=== PATIENT | male | born 1960 | race Caucasian/White ===

== ENCOUNTER → 2021-11-21 09:01 | Outpatient (CLI) | payer OTHER, SELFPAY ==
[2021-11-21 19:46] LABS: Hemoglobin A1C% w Est Avg Glu 6.4 % (4.0-6.0)
[2021-11-21 19:47] LABS: Alanine Aminotransferase 21 IU/L (<50); Albumin 4.2 g/dL (3.5-5.0); Albumin Globulin Ratio 1.6 (1.0-2.8); Alkaline Phosphatase 55 U/L (38-126); Aspartate Aminotransferase 21 IU/L (17-59); BUN Creatinine Ratio 18.3 (6-22); Bilirubin Total 0.5 mg/dL (0.2-1.3); Blood Urea Nitrogen 15 mg/dL (9-20); Calcium 9.3 mg/dL (8.4-10.2); Carbon Dioxide 28 mmol/L (22-32); Chloride 105 mmol/L (98-107); Cholesterol 165 mg/dL (140-199); Estimated Glomerular Filt Rate > 60 mL/min (>60); Globulin 2.7 g/dL (1.7-4.1); Glucose 138 mg/dL (80-110); HDL Cholesterol 61 mg/dL (40-60); HEMOLYSIS < 15 (0-50); LDL Cholesterol Calculated 78 mg/dL (<100); Potassium 3.8 mmol/L (3.4-5.1); Sodium 139 mmol/L (137-145); Total Protein 6.9 g/dL (6.3-8.2); Triglycerides 132 mg/dL (35-150)
[2021-11-21 20:00] LABS: Basophils Absolute Auto 100 /uL (0-100); Basophils Percent Auto 0.9 % (0-2); Eosinophils Absolute Auto 200 /uL (0-450); Eosinophils Percent Auto 2.1 % (2-4); Hematocrit 40.6 % (41-53); Hemoglobin 13.9 g/dL (13.5-17.5); Lymphocytes Absolute Auto 2100 /uL (1100-4500); Lymphocytes Percent Auto 19.2 % (25-40); Mean Corpuscular HGB Conc 34.3 % (30-36); Mean Corpuscular Hemoglobin 30.1 PG (26-34); Mean Corpuscular Volume 87.7 fL (80-100); Monocytes Absolute Auto 700 /uL (0-900); Neutrophils Absolute Auto 7900 /uL (1500-7000); Neutrophils Percent Auto 71.8 % (50-75); Platelet Count 312 X10^3/uL (150-400); Red Blood Cell Count 4.63 X10^6/uL (4.5-5.9); Red Cell Distribution Width 15.2 % (11.6-14.8)
[2021-11-21 21:16] LABS: Add Manual Diff / Slide Review SLIDE REVIEW; RBC Morphology Normal Morphology
== END ==
PROVIDERS: Family Provider Family Medicine; PCP Physician Assistant Medical; Visit Provider Physician Assistant Medical
DX: D84.9 Immunodeficiency, unspecified (principal); E11.618 Type 2 diabetes mellitus with other diabetic arthropathy; E78.5 Hyperlipidemia, unspecified; F33.9 Major depressive disorder, recurrent, unspecified; I10 Essential (primary) hypertension; M13.0 Polyarthritis, unspecified; M35.3 Polymyalgia rheumatica
CPT/HCPCS: 80053; 80061; 83036; 84443; 85025

== ENCOUNTER → 2022-04-29 10:02 | Outpatient (CLI) | payer OTHER, SELFPAY ==
--- NOTE | 2022-04-29 | DI.NM.S_ITS ---
PROCEDURE: ID BONE 3 PHASE RADIOPHARMACEUTICAL: 22 mCi Tc-99m MDP IV. INDICATIONS: FAILURE OF RIGHT KNEE TOTAL ARTHROPLASTY TECHNIQUE: Multiple bone scintigrams were obtained after intravenous injection of Tc-99m MDP, including flow, blood pool, and delayed images centered to the region of interest. COMPARISON: [place], [place], BONE SCAN WHOLE BODY, 11/25/2015, 14:25. FINDINGS: There is asymmetric mildly increased flow and blood pool around the right knee. Delayed images show increased uptake of the right knee compared to the left. There is also increased delayed uptake around the left patella, of questionable significance as this is stable and not the site of clinical concern. IMPRESSION: Increased flow, blood pool, and delayed uptake around the right knee prosthesis can be seen with infection or loosening. Correlate clinically and with radiography as needed. Dictated by: Pranav Sanders M.D. on 04/29/2022 at 14:57 Approved by: Pranav Sanders M.D. on 04/29/2022 at 14:59
== END ==
PROVIDERS: Family Provider Family Medicine; PCP Physician Assistant Medical; Referring Provider Orthopaedic Surgery; Visit Provider Orthopaedic Surgery
DX: M25.561 Pain in right knee (principal); T84.84XD Pain due to internal orthopedic prosthetic devices, implants and grafts, subsequent encounter
CPT/HCPCS: 78315; A9503

== ENCOUNTER → 2022-05-28 09:34 | Outpatient (CLI) | payer OTHER, SELFPAY ==
--- NOTE | 2022-05-28 09:36 | DI.CT.S_ITS ---
PROCEDURE: CT LE RT WO CON INDICATIONS: Broken internal joint prosthesis, other site. Right knee pain TECHNIQUE: Noncontrast 1-1.5 mm axial sections acquired from the mid-patella to the proximal tibia, with coronal and sagittal reformats. COMPARISON: [place], [place], [place] BONE 3 PHASE, 04/29/2022, 10:14. FINDINGS: Image quality: Diagnostic. Significant beam hardening artifacts are noted from knee prosthesis. Bones: Patient is status post right total knee arthroplasty. Right knee alignment is anatomic. The prosthesis are grossly intact without obvious hardware fracture. No significant increase radiolucencies surrounding hardware is seen to suggest loosening . Heterogeneously sclerotic area within mid to distal femoral shaft medullary space is seen measures up to 2 x 3 x 11.8 cm in size . No adjacent cortical erosion or destruction is seen. No periosteal reaction. Soft tissues: There is moderate amount of joint effusion. No intra-articular loose bodies. No abnormal soft tissue calcifications. Distal quadriceps tendon and patellar tendon are grossly intact. IMPRESSION: 1. Prior right total knee arthroplasty. No evidence of hardware failure. No definite CT evidence of hardware loosening. 2. No periprosthetic fracture. Heterogeneously sclerotic area within mid to distal femoral shaft medullary space likely represent benign enchondroma. No suspicious bony lesion. 3. Moderate joint effusion, no intra-articular loose bodies. No abnormal soft tissue calcifications. Dictated by: Arvind Fournier M.D. on 05/28/2022 at 10:14 Approved by: Arvind Fournier M.D. on 05/28/2022 at 10:40
== END ==
PROVIDERS: Family Provider Family Medicine; PCP Physician Assistant Medical; Referring Provider Orthopaedic Surgery; Visit Provider Orthopaedic Surgery
DX: T84.018A Broken internal joint prosthesis, other site, initial encounter (principal); M25.561 Pain in right knee; M25.461 Effusion, right knee; Z96.651 Presence of right artificial knee joint
CPT/HCPCS: 73700

== ENCOUNTER → 2022-08-06 10:47 | Outpatient (CLI) | payer OTHER, SELFPAY ==
[2022-08-06 20:05] LABS: Add Manual Diff / Slide Review NO; Basophils Absolute Auto 100 /uL (0-100); Basophils Percent Auto 1.1 % (0-2); Eosinophils Absolute Auto 300 /uL (0-450); Eosinophils Percent Auto 3.3 % (2-4); Hematocrit 41.1 % (41-53); Hemoglobin 13.8 g/dL (13.5-17.5); Lymphocytes Absolute Auto 1400 /uL (1100-4500); Lymphocytes Percent Auto 15.4 % (25-40); Mean Corpuscular HGB Conc 33.6 % (30-36); Mean Corpuscular Hemoglobin 30.2 PG (26-34); Mean Corpuscular Volume 89.8 fL (80-100); Monocytes Absolute Auto 700 /uL (0-900); Monocytes Percent Auto 7.8 % (3-14); Neutrophils Absolute Auto 6600 /uL (1500-7000); Neutrophils Percent Auto 72.4 % (50-75); Platelet Count 296 X10^3/uL (150-400); Red Blood Cell Count 4.58 X10^6/uL (4.5-5.9); Red Cell Distribution Width 14.3 % (11.6-14.8); White Blood Cell Count 9.2 X10^3/uL (4.5-11.0)
[2022-08-06 20:16] LABS: Hemoglobin A1C% w Est Avg Glu 5.6 % (4.0-6.0)
[2022-08-06 20:20] LABS: Alanine Aminotransferase 17 IU/L (<50); Albumin 4.2 g/dL (3.5-5.0); Albumin Globulin Ratio 1.6 (1.0-2.8); Alkaline Phosphatase 59 U/L (38-126); Aspartate Aminotransferase 17 IU/L (17-59); BUN Creatinine Ratio 20.5 (6-22); Bilirubin Total 0.8 mg/dL (0.2-1.3); Blood Urea Nitrogen 17 mg/dL (9-20); Calcium 9.1 mg/dL (8.4-10.2); Carbon Dioxide 28 mmol/L (22-32); Chloride 105 mmol/L (98-107); Estimated Glomerular Filt Rate > 60 mL/min (>60); Globulin 2.7 g/dL (1.7-4.1); Glucose 102 mg/dL (80-110); HEMOLYSIS < 15 (0-50); Potassium 3.9 mmol/L (3.4-5.1); Sodium 139 mmol/L (137-145); Total Protein 6.9 g/dL (6.3-8.2)
[2022-08-06 20:27] LABS: C-Reactive Protein Quant < 0.5 mg/dL (<1.0); Creatine Kinase 55 U/L (55-170)
[2022-08-06 20:31] LABS: Erythrocyte Sedimentation Rate 6 MM/HR (0-15)
[2022-08-06 20:46] LABS: Appearance Urine UA CLEAR; Bilirubin Urine UA NEGATIVE (NEGATIVE); Color Urine UA YELLOW; Glucose Urine UA NEGATIVE (Negative); Ketones Urine UA NEGATIVE (NEGATIVE); Leukocyte Esterase Urine UA NEGATIVE (NEGATIVE); Nitrite Urine UA NEGATIVE (Negative); Occult Blood Urine UA 1+ (Negative); Protein Urine UA NEGATIVE (Negative); Urobilinogen Urine UA 0.2 E.U./dL (0.2)
[2022-08-06 20:56] LABS: TSH w/ Reflex to FT4 4.04 uIU/mL (0.47-4.68)
[2022-08-06 21:21] LABS: Bacteria Urine None Seen; Culture Indicated Urine Cult Not Indicated; RBC Urine None Seen (0-5/HPF); WBC Urine None Seen (0-5/HPF)
== END ==
PROVIDERS: Family Provider Family Medicine; PCP Family Medicine; Visit Provider Family Medicine
DX: Z01.818 Encounter for other preprocedural examination (principal); E11.42 Type 2 diabetes mellitus with diabetic polyneuropathy; I10 Essential (primary) hypertension; M35.3 Polymyalgia rheumatica; Z79.52 Long term (current) use of systemic steroids; Z96.651 Presence of right artificial knee joint; M13.0 Polyarthritis, unspecified; D84.9 Immunodeficiency, unspecified; E78.5 Hyperlipidemia, unspecified
CPT/HCPCS: 80053; 81001; 82550; 83036; 84443; 85025; 85651; 86140

== ENCOUNTER → 2022-08-19 06:53 | Outpatient (CLI) | payer OTHER, SELFPAY ==
[2022-08-19 22:01] LABS: COVID19 - ORCAS (NP or Nasal) Negative (Negative)
== END ==
PROVIDERS: Physician Assistant; Family Provider Family Medicine; PCP Family Medicine; Visit Provider Orthopaedic Surgery
DX: Z20.822 Contact with and (suspected) exposure to COVID-19 (principal); Z01.812 Encounter for preprocedural laboratory examination
CPT/HCPCS: U0003

== ENCOUNTER 2022-08-21 11:47 | Inpatient (IN) | payer OTHER, SELFPAY ==
[2022-08-18 08:42] VITALS: BMI 33.5
[2022-08-21] VITALS (11 sets, daily range): BP systolic 139–160; BP diastolic 70–90; PULSE 56–78; RESP 12–169; TEMP 36.3–36.7; O2SAT 95–100; BMI 33.5
--- NOTE | 2022-08-21 | PATH_ITS ---
[facility] Accession Number: [id number] No. of containers..01 Tissue . 01 Material submitted: . knee - RIGHT KNEE SYNOVIUM . 01 Clinical history: . HX OF ENCHONDROMA . 01 Diagnosis: Right Knee Synovium, Excision: Reactive synovial tissue with cystic degenerative changes, histiocytic inflammation, hemosiderin deposition, and reactive angiogenesis; see note. . Note: The findings are not entirely specific; however, they mostly appear reactive in nature. The examined sections are negative for malignancy. [facility] 08/27/2022 0939 Local . 01 Comment: This case has been reviewed by Dr. Doris Negron who agrees with the above diagnosis. . 01 Electronically signed: . Keshav Cuevas MD, Dermatopathologist NPI- [id number] . 01 Gross description: . The specimen is received in formalin labeled with the patient's name, , and right knee synovium, and consists of a ragged, irregular, swan to brown soft tissue fragment measuring 6.8 x 5.9 x 1.3 cm. One surface is inked blue, and sectioning reveals an orange to swan, heterogenous cut surface. Technical Data Analyst sections are submitted in cassettes A1-A3. ([id number]) /FRR 08/22/2022 1620 Local . 01 Pathologist provided ICD-10: T84.018A . 01 CPT . 890508 Specimen Comment: A courtesy copy of this report has been sent to [phone] Performed at: 01 [facility] [address] [place] [address] Suite [facility], [place], [place] [id number] MD Jarett Tapia MD Phone: [phone]
--- NOTE | 2022-08-21 06:00 | DI.RAD.S_ITS ---
PROCEDURE: XR KNEE RT 1TO2V INDICATIONS: TKA TECHNIQUE: 2 view(s) of the knee acquired. COMPARISON: [facility] [place], [place], XR KNEE 4+ VIEWS RIGHT, 04/02/2022, 13:28. FINDINGS: Bones: Patient is status post knee joint arthroplasty. Hardware components are in expected positions. Visualized bony structures are intact. Soft tissues: Overlying postoperative changes are noted. IMPRESSION: Status post arthroplasty with expected postoperative change. Dictated by: Niharika Dobbins M.D. on 08/21/2022 at 16:52 Approved by: Niharika Dobbins M.D. on 08/21/2022 at 16:52
[2022-08-21] MEDS: ACETAMINOPHEN 325 MG TABLET 975 MG PO (12:14)
[2022-08-21] MEDS: CELECOXIB 200 MG CAPSULE PO (12:15)
[2022-08-21] MEDS: PREGABALIN 75 MG CAPSULE PO (12:15)
[2022-08-21] MEDS: VANCOMYCIN 1,000 MG/200 ML PIGGYBACK 200 MG IV (12:32)
[2022-08-21] MEDS: LACTATED RINGERS 1,000 ML 84 ML IV ×2 (12:32→15:55)
--- NOTE | 2022-08-21 13:30 | PM.PREOP ---
Pre-operative Note COVID-19 COVID-19 status: Negative Interval Note History & Physical reviewed/Exam performed by Physician: Yes Changes to H&P: No
--- NOTE | 2022-08-21 13:31 | P.OP_ITS ---
Operative Date/Time/Diagnoses Date of procedure: 08/21/22 Time of procedure: 13:50 Pre-op diagnosis: right knee recurrent effusions with a history of right total knee arthroplasty approximately 20 years ago, no gross loosening on his radiographs CT scan or total body bone scan Post-op diagnosis: same Procedure & Clinicians Procedure: Revision right total knee arthroplasty, revision of 1 component Same procedure as scheduled: Yes Indications: The patient has a history of a bilateral total knee arthroplasty. He notes about 5 month history of recurrent right knee effusions. He had an extensive workup including aspiration culture and sensitivity, plain x-rays, CT scan, and a total body bone scan. There was no obvious loosening. Non-operative management has failed and the patient has requested total knee replacement. The risks, benefits and alternatives to surgery were discussed with the patient prior to proceeding. Risks discussed included, but were not limited to, failure to relieve pain, stiffness, infection, nerve damage, deep venous thrombosis, pulmonary embolism, stroke, coma, heart attack, permanent paralysis and , as well as the potential need for eventual revision of the prosthetic. Surgeon: Maria Fernanda Mcneal Hospice Manager: Sonia Diallo Anesthesia Type: General and Spinal Operative Notes Findings: No evidence of tibial femoral or patellar loosening, moderate synovitis with a fairly substantial moderate polyethylene wear especially posteriorly with minimal delamination, stable at 0 45 and 90?, clear synovial fluid without evidence of purulence or infection Closure Type: primary Specimen(s): other (MULTIPLE CULTURES AND PATHOLOGY FROM THE SUPRAPATELLAR POUCH. Cultures included fluid, synovium and notch material) Prosthetic devices, grafts, tissues, transplants, or devices: Neena size 12 anterior constrained size blue polyethylene Applied: drain(s) Estimated Blood Loss (mL): 250 Blood products transfused: none Tourniquet time (min): 41 Procedure in detail: The patient was seen in the pre-operative area, where the patient identified the right knee as the operative site and this was marked with my initials. The patient received pre-operative antibiotics, and was taken to the operating room and placed on the operative table in the supine position. After satisfactory anesthesia, a mint wafer depositor out was performed. The right leg was encircled with a tourniquet about the proximal thigh, and the leg was prepared from the toes to the tourniquet with ChloroPrep in the usual fashion and draped through sterile drapes. The leg was elevated and exsanguinated with Eschmark bandage and the tourniquet inflated to [250] mmHg pressure. The knee was approached through an approximately 20 cm incision centered over the patella and carried into the knee through a medial parapatellar arthrotomy. There was severe synovitis in the suprapatellar patellar pouch. I sent fluid for stat Gram stain culture and sensitivity. A fairly extensive synovectomy was performed especially in the suprapatellar pouch. A sent the synovium for culture and sensitivity and pathology. The anterior aspect of the femoral cortex appeared to be intact and there did not appear to be any softening of the distal femur or evidence of erosion of the and noted preoperative enchondroma in the distal femur. The patella was carefully mobilized. The strip the soft tissues some medially in order to allow mobilization and possible polyethylene removal. I checked the stability patient was noted to be stable at 0 45 and 90? with implanted poly. Polyethylene was removed. There was a small amount of delamination and some component of posterior polyethylene wear. There was not severe delamination or fragmentation of the poly. Most of the wear was posterior. Some synovium was also debrided from the notch and sent as especially separate specimen for culture and sensitivity. I checked the stability of the femoral and tibial component as well as the patella specifically placing an osteotome underneath the tibia there was no obvious loosening and the femoral component appeared stable. Additional synovium was removed. The wound was meticulously irrigated with normal saline we used the pulse lavage. I also used the Aquamantys in order to minimize bleeding and to coagulate anything which might cause recurrent hemarthrosis. A new 12 mm size blue polyethylene was carefully inserted. Patient was placed through range of motion was noted was stable at 0 45 and 90?. The posterior capsule, synovium and quad were all injected with part of a mixture of 60 ml 0.25% Marcaine mixed with 20 ml Exparel for post operative pain control. The remainder of this mixture was injected into the capsule and subcutaneous tissues. The tibial and femoral components were then placed and the knee placed through a range of motion. Range of motion was [0-130], with good stability throughout the range. The knee was copiously irrigated and the tourniquet deflated. Hemostasis was obtained with the [Aquamantys system]. A drain was placed and brought out superolaterally. The capsule was closed with interrupted nonabsorbable suture. The subcutaneous layer was closed with barbed sutures, and the skin with a running 3-0 V-Lock suture and skin murtaza. A Brenda dressing was applied and the patient was taken to recovery having tolerated the procedure well. Complications: none Post-operative Condition: stable Disposition: Acute Care Plan for aftercare: The patient will be maintained on a standard total knee replacement protocol with weight bearing as tolerated. The patient will receive aspirin and sequential compression devices for DVT prophylaxis. The patient will be discharged home when safe for the home environment. Check culture results at postop follow-up.
[2022-08-21] MEDS: CEFAZOLIN 2 GM/100 ML PREMIX 100 ML IV (14:00)
[2022-08-21] MEDS: CEFAZOLIN VIAL 1 GM in SODIUM CHLORIDE 0.9% 100 ML IV (14:00)
[2022-08-21] MEDS: TRANEXAMIC ACID 1,000 MG VIAL 2000 MG INJ ×2 (14:03→15:08)
--- NOTE | 2022-08-21 14:55 | SUR.OPER ---
Supine on padded OR bed. Pillow under head, arms secured on padded armboards <90 degree abduction. Safety belt across torso. Non-operative leg secured with tape over blanket over lower leg. Operative leg secured in DeMayo/Bakari/Nathe positioner. Foam padded brace at thigh of operative leg.
[2022-08-21] MEDS: BUPIVACAINE 0.5% W/ EPI (PF) 30 ML VIAL INJ (15:43)
[2022-08-21] MEDS: BUPIVACAINE LIPOSOME 266 MG/20 ML VIAL INJ (15:45)
[2022-08-21] MEDS: OXYCODONE/ACETAMINOPHEN 5/325 TABLET 1 TAB PO (16:31)
--- NOTE | 2022-08-21 16:41 | SUR.PHASEI ---
Report called to Jodie.
--- NOTE | 2022-08-21 16:58 | SUR.PHASEI ---
Patient transferred to the floor with his belongings bag, large black bag, heavy jacket, and walker. Report given to Jodie. Dressing unchanged. HV and Brenda in place. Patient awake and moving all extremities. IV patent.
--- NOTE | 2022-08-21 17:50 | PC.NURSE ---
Patient is alert and oriented x4, he denies pain to his r.knee at this time. He has a giulia drain with a small amount of drainage. Hemovac drain will be unclamped at 1800. Pt is in room and helpful. He is a diabetic and blood sugar down in pacu was 170s. He states that he does not take insulin. Resting and denies any nausea. Patient had a spinal in surgery but has complete sensation of his foot with touch.
[2022-08-21] MEDS: IBUPROFEN 400 MG TABLET PO ×2 (18:32→21:04)
[2022-08-21] MEDS: OXYCODONE IR 10 MG TABLET PO ×2 (18:32→21:30)
[2022-08-21] MEDS: ACETAMINOPHEN 325 MG TABLET 650 MG PO ×2 (18:33→23:51)
[2022-08-21] MEDS: LACTATED RINGERS 1,000 ML 100 ML IV ×2 (18:34→23:50)
[2022-08-21] MEDS: ATORVASTATIN 20 MG TABLET 10 MG PO (21:04)
[2022-08-21] MEDS: DOCUSATE 100 MG CAPSULE PO (21:04)
[2022-08-21] MEDS: ASPIRIN EC 81 MG TABLET PO (21:05)
[2022-08-21] MEDS: CEFAZOLIN VIAL 3 GM in SODIUM CHLORIDE 0.9% 100 ML IV (21:30)
[2022-08-22 00:47] VITALS: BP 133/66; PULSE 50; RESP 18; TEMP 36.4; O2SAT 98
[2022-08-22] MEDS: IBUPROFEN 400 MG TABLET PO ×3 (01:03→08:19)
[2022-08-22 04:07] VITALS: BP 135/65; PULSE 52; RESP 18; TEMP 36.5; O2SAT 96
[2022-08-22 04:41] LABS: Hematocrit 37.5 % (41-53); Hemoglobin 12.3 g/dL (13.5-17.5)
[2022-08-22] MEDS: CEFAZOLIN VIAL 3 GM in SODIUM CHLORIDE 0.9% 100 ML IV (06:11)
[2022-08-22] MEDS: ACETAMINOPHEN 325 MG TABLET 650 MG PO (06:11)
[2022-08-22 08:00] VITALS: BP 151/72; PULSE 71; RESP 22; TEMP 36.4; O2SAT 97
[2022-08-22] MEDS: DOCUSATE 100 MG CAPSULE PO (08:19)
[2022-08-22] MEDS: hydroCHLOROthiazide 25 MG TABLET 12.5 MG PO (08:19)
[2022-08-22] MEDS: ASPIRIN EC 81 MG TABLET PO (08:19)
[2022-08-22] MEDS: predniSONE 20 MG TABLET PO (08:20)
[2022-08-22] MEDS: lisinopriL 20 MG TABLET PO (08:20)
[2022-08-22] MEDS: METFORMIN XR 500 MG TABLET 1000 MG PO (08:20)
[2022-08-22] MEDS: SERTRALINE 50 MG TABLET 100 MG PO (08:21)
--- NOTE | 2022-08-22 09:56 | P.DS_ITS ---
History of Present Illness History of Present Illness Date Patient Seen: 08/22/22 Time Patient Seen: 09:56 Chief complaint: Right TKA Narrative: Patient is complaining of very mild right knee pain this morning after his right total knee arthroplasty revision with a polyethylene liner exchange. His is at bedside. 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 Overall he is feeling great and would like to be discharged home today. Discharge Providers Provider Date of admission: 08/21/22 11:47 Discharge Date: 08/22/22 Primary care physician: Quinn Campbell MD Consults: 08/21/22 06:00 Consult to Anesthesiology Routine Comment: Consulting Provider: Anesthesiologist Reason for consultation: Regional block for post operative pain control 08/21/22 17:41 Consult to Discharge Planning Routine Comment: Consult to Physical Therapy Evaluate & Treat Comment: Physician Instructions: postop TKA protocol Discharge provider: Angie Sheridan PA-C Summary Hospital Course Discharge Diagnosis: right knee recurrent effusions with a history of right total knee arthroplasty approximately 20 years ago, no gross loosening on his radiographs CT scan or total body bone scan Hospital Course: Operative Date/Time/Diagnoses Date of procedure: 08/21/22 Time of procedure: 13:50 Procedure & Clinicians Procedure: Revision right total knee arthroplasty, revision of 1 component Same procedure as scheduled: Yes Indications: The patient has a history of a bilateral total knee arthroplasty.? He notes about 5 month history of recurrent right knee effusions.? He had an extensive wo rkup including aspiration culture and sensitivity, plain x-rays, CT scan, and a total body bone scan.? There was no obvious loosening. Non-operative management has failed and the patient has requested total knee replacement. The risks, benefits and alternatives to surgery were discussed with the patient prior to proceeding. Risks discussed included, but were not limited to, failure to relieve pain, stiffness, infection, nerve damage, deep venous thrombosis, pulmonary embolism, stroke, coma, heart attack, permanent paralysis and , as well as the potential need for eventual revision of the prosthetic. Surgeon: Maria Fernanda Mcneal Fluid Jet Cutter Operator: Sonia Diallo Anesthesia Type: General and Spinal Operative Notes Findings: No evidence of tibial femoral or patellar loosening, moderate synovitis with a fairly substantial moderate polyethylene wear especially posteriorly with minimal delamination, stable at 0 45 and 90?, clear synovial fluid without evidence of purulence or infection Closure Type: primary Specimen(s): other (MULTIPLE CULTURES AND PATHOLOGY FROM THE SUPRAPATELLAR POUCH.? Cultures included fluid, synovium and notch material) Prosthetic devices, grafts, tissues, transplants, or devices: Neena size 12 anterior constrained size blue polyethylene Applied: drain(s) Estimated Blood Loss (mL): 250 Blood products transfused: none Tourniquet time (min): 41 Status at Discharge Cognitive/behavioral status at discharge: at baseline, oriented Functional status at discharge: uses cane/walker Overall status at discharge: patient is progressing back to baseline Exam Vital Signs (past 8 hours): - 08/22/22 04:07 Temperature 97.7 F Pulse Rate 52 L Respiratory Rate 18 Blood Pressure 135/65 Pulse Oximetry 96 Oxygen Flow Rate 0 Oxygen Delivery Method CPAP Oxygen Flow Rate 0 Narrative Exam Narrative: Very pleasant 62-year-old male, up and walking, no acute distress. Right knee brenda dressing demonstrates bloody discharge on the distal aspect of the bandage, no surrounding erythema, ecchymosis, induration, or jackie pus. Bilateral lower extremity: Motor functions are grossly intact, sensation is grossly intact to light touch, calves are soft and nontender to palpation. I took his drain off suction, okay to remove drain after physical therapy session this morning. Objective Labs Result Diagrams: 08/22/22 03:56 Labs: Laboratory Results - last 24 hr 08/22/22 03:56 Hgb 12.3 L Hct 37.5 L PFSH Medical History COVID-19 virus infection (~2021) Depression Encounter for hepatitis C screening test for low risk patient Osteoarthritis Peripheral neuropathy Pneumonia of left lower lobe due to infectious organism Screening for HIV (human immunodeficiency virus) Surgical History Anesthesia History of bilateral knee replacement (~1999) Hx of fusion of cervical spine Hx of knee surgery Hx of laminectomy Social History household members: spouse Smoking Status: Former smoker alcohol intake: current Discharge Assessment & Plan Assessment and Plan Assessment: -stable status post right total knee arthroplasty revision: Polyethylene exchange Plan of Treatment: -mobilize with PT. Weightbearing as tolerated with front wheel walker. -drain: Hemovac was taken off of suction this morning. After physical therapy session this morning, nurse is okay to remove Hemovac. -continue with multimodal pain management -aspirin 81 mg b.i.d. x6 weeks for DVT prophylaxis -all intraoperative cultures show no growth to date thus far. -DC home once cleared by PT and drain is removed -follow-up in 10-14 days for postoperative visit, intraoperative cultures will need to be checked at that time. Discharge Plan Discharge Plan Patient Disposition: Home Discharge orders & Medications Prescriptions: New acetaminophen 500 mg capsule 500 mg PO Q4H MDD Max 3000 mg per day PRN (Reason: fever or pain) Qty: 90 0RF aspirin 81 mg Tablet,Delayed Release (Dr/Ec) 81 mg PO BID 42 Days Qty: 84 0RF Rx Instructions: Prevent blood clots docusate sodium 100 mg Capsule 100 mg PO BID PRN (Reason: constipation) Qty: 20 0RF ibuprofen 400 mg Tablet 400 mg PO Q4HR MDD Max 2400 mg per day PRN (Reason: Pain/inflammation) Qty: 90 0RF oxycodone 5 mg Tablet See Rx Instructions .ROUTE .COMPLEX PRN (Reason: Pain, Moderate (4-6)) Qty: 42 0RF Rx Instructions: Take 1-2 tablets by mouth every 4 hours as needed for moderate to severe postoperative pain Continued atorvastatin 10 mg tablet 10 mg PO DAILY Qty: 90 3RF lisinopril-hydrochlorothiazide 20-12.5 mg tablet 1 tab PO QDAY Qty: 90 3RF sertraline 100 mg tablet 100 mg PO QDAY Qty: 90 3RF metformin 1,000 mg tablet extended release 24 hr 1,000 mg PO QAM prednisone 20 mg tablet 20 mg PO DAILY Rx Instructions: TAKE ONE TABLET BY MOUTH EVERY DAY --TITRATE UP OR DOWN BY 5 MG PER DAY BASED ON MUSCLE STIFFNESS/PAIN Follow up/Referrals: Maria Fernanda Mcneal MD [Physician] - 2 Weeks (Follow up as scheduled with Dr. Mcneal on 09/02/22 at 11:00am and on 09/23/22 at 2:30[place] [facility] [place] Quinn Campbell MD [Primary Care Provider] - Diet/Activity/Treatments Diet: Diet as Tolerated Other treatments: Medications: -Aspirin 81mg twice daily x6 weeks to prevent blood clots. -OTC Tylenol 500 mg 1 tablet every 4 hours as needed for pain/fever. Max 6 tablets per day. -Ibuprofen 400 mg 1 tablet every 4 hours as needed for pain/inflammation. Max 2,400 mg per day. -Oxycodone 5 mg take 1-2 tablets every 4 hours as needed for moderate-severe pain (narcotic pain medication). -As needed medications: -Ducolax and /or MiraLax as needed for constipation from narcotic pain medications. -Pepcid AC as needed for stomach upset (usually from aspirin or ibuprofen). Dressing/Wound care: -Remove the Alexander wrap 48 hours after surgery. -Keep Brenda dressing in place until postoperative follow-up office visit. The Brenda battery/pump should last for 7 days from surgery. Once the pump stops, please cut off hose at base of dressing and cover with a bandaid/part of a dressing from Brenda package. The monitor can be thrown away and recycle the batteries. Leave the remaining dressing in place. -Brenda info: The Brenda dressing provides suction known as negative pressure wound therapy, which draws out excess fluid from the wound and protects the incision. It also helps to prevent bacteria from entering the wound or incision. -Okay to shower. Keep wound out of direct water stream. No soaking or submerging until all the scabs fall off (approximately 4-6 weeks). -No lotions, ointments, or scar creams directly to the incision until the wound is healed (4-6 weeks). No soaking or submerging until all the scabs are gone (usually 4-6 weeks). -Bruising is relatively normal and can show up 1-10 days after surgery, and can travel down to your foot or ankle. This is expected after surgery, but can be painful. -Please call the office if dressing becomes wet, soiled, or saturated. Activities: -Weight-bearing as tolerated. Use front wheeled walker, and progress to cane when safe. -Continue with home exercises as directed by your physical therapist. -Elevate ?toes above the nose if you have significant swelling in your lower leg. (A wedge pillow is easiest.) -Ice your incision as needed for pain/inflammation/swelling. Protect your skin with a folded pillowcase. -Incentive Spirometer (breathing device from hospital): 5-10xs every hour while awake for the first 1-2 weeks. Follow-up: -Follow-up with your surgeon or PA in the office in 10-14 days after surgery. We will need to check culture results at postop follow-up. All intraoperative cultures show no growth to date upon hospital discharge. -Follow-up with your surgeon 6 weeks postoperatively. Call the office if you have chest pain, shortness of breath, significant swelling that will not resolve with elevating, fever over 101?, significantly worsening pain, or are concerned you might need to go to the Emergency Room. [facility]: [phone] Skin/Wound/Dressing Care Report to your healthcare provider any signs of infection, such as:: chills, fever, night sweats, unusual drainage and unusual redness Visit Report/Discharge Packet Instructions: DI for Knee Replacement, DI for Prescription Opioid Use Stand Alone Forms: Patient Portal/API, Stroke Signs & Symptoms, Surgery Discharge Discharge Data Primary Care Provider: Quinn Campbell VTE Deep Vein Thrombosis/Pulmonary Embolism Present on Admission: No
--- NOTE | 2022-08-22 10:30 | PT.IIE ---
Current Diagnoses Broken internal joint prosthesis, other site, initial encounter (08/21/22) Presence of right artificial knee joint (08/21/22) Presence of artificial knee joint, bilateral (08/21/22) Surgery Performed Operation Date: 08/21/22 13:45 Actual Procedures p Total Knee Arthroplasty Revision open w/ adhesion lysis, polyethylene liner replacement, & synovectomy(Right) - Maria Fernanad Mcneal MD Surgical History (Last Reviewed 08/22/22 @ 09:59 by Angie Sheridan PA-C) Anesthesia History of bilateral knee replacement (~1999) Hx of fusion of cervical spine Hx of knee surgery Hx of laminectomy Medical History (Last Reviewed 08/22/22 @ 09:59 by Angie Sheridan PA-C) COVID-19 virus infection (~2021) Depression Encounter for hepatitis C screening test for low risk patient Osteoarthritis Peripheral neuropathy Pneumonia of left lower lobe due to infectious organism Screening for HIV (human immunodeficiency virus) Physical Therapy Inpatient Evaluation/Re-Eval M1 PT/OT-IP Prior Functional Status Start: 08/22/22 13:07 Freq: NEEDED Status: Active Protocol: Document 08/22/22 10:30 AB (Rec: 08/22/22 13:18 AB [id number]) Medical Review Prior Functional Status Medical History Reviewed Yes Communication able to make needs known Mobility and Gait pt stated that he is independent with all mobilities and ambulation without AD Social History Household Members spouse Living Arrangements House Number of Floors (Floors) One Floor Number of Stairs To Enter/Railing? 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 M2 PT-IP Current Condition Start: 08/22/22 13:07 Freq: NEEDED Status: Active Protocol: Document 08/22/22 10:30 AB (Rec: 08/22/22 13:18 AB [id number]) Physical Therapy Current Condition Current Condition Evaluation Date 08/22/22 Treatment Diagnosis s/p R TKA revision; difficulty in walking Onset Date 08/21/22 M3 PT-IP Subjective Start: 08/22/22 13:07 Freq: NEEDED Status: Active Protocol: Document 08/22/22 10:30 AB (Rec: 08/22/22 13:18 AB [email or web address]) Subjective Physical Therapy Visit Type Type Initial Evaluation Visit Start Time 10:30 Visit Stop Time 11:00 Total Visit Minutes 30 Number of VEGETABLES COOK Visits 0 Physical Therapy Visit Comments Patient Comments agreeable to do PT Therapy Pain Assessment Pain Present Pain Present Denied Pain M4 PT-IP Mobility and Gait Start: 08/22/22 13:07 Freq: NEEDED Status: Active Protocol: Document 08/22/22 10:30 AB (Rec: 08/22/22 13:18 AB [id number]) PT-Bed Mobility Assessment Supine to Sit Supine to Sit Independent PT-Transfer Assessment Sit to and From Stand Sit to and from Stand Standby Assistance Equipment Transfer Assistive Device Gait Belt,Front Wheeled Walker Orthotic/Prosthetic Devices or Brace: No Transfers Transfer Technique ambulated Transfer Ability Level of Assist Standby Assistance,1 Person Assistance,Use of Upper Extremities Comments Mobility Comments pt completed supine to sit Independent. completed sit to stand SBA and ambulated in room using FWW ~ 40 ft SBA to CGA. pt can be impulsive and educated on slowing down for safety. slight LOB during turns but with recovery. educated pt on stair climbing. ambulated towards platform step using FWW SBA ~ 30 ft. completed up/down step using FWW SBA to CGA. pt ambulated back to the room using FWW SBA and sat on chair. positioned pt on the chair. call light and table placed within reach. Gait Assessment Gait Gait Assistance Required: Standby Assistance,Contact Guard Assist Distance (Feet) 40 Able to Maintain Weight Bearing Status Yes During Gait Assistive Devices Assistive Device Gait Belt,Front Wheeled Walker Orthotic/Prosthetic Devices or Brace: No Gait Deviations General Gait Pattern Antalgic Factors Limiting Gait Function Factors Limiting Gait Function Decreased Activity Tolerance, Decreased Strength,Limited Range of Motion,Poor Balance, Poor Safety Awareness Stair Climbing Assessment Evaluation Level of Assist On Stairs Standby Assistance,Contact Guard Assistance Devices Stair Climbing Assistive Devices Front Wheel Walker Technique/Endurance Stair Climbing Direction Ascend and Descend Stair Climbing Technique Step to Step Number of Steps Climbed 1 Query Text: Stair Climbing Set # Repetitions (reps) 1 PT-Balance Assessment Sitting Balance and Reactions Static Sitting Balance Ability Normal Dynamic Sitting Balance Ability Normal Standing Balance and Reactions Static Standing Balance Ability Good Dynamic Standing Balance Ability Fair Device Used FWW M5 PT-IP Objective Assessments Start: 08/22/22 13:07 Freq: NEEDED Status: Active Protocol: Document 08/22/22 10:30 AB (Rec: 08/22/22 13:18 AB [id number]) Orientation Orientation/Cognition Level of Alertness Confusional State Orientation Name,Age,Birthday,Month,Date, Year,Day of Week,Place, Situation Language Function Ability No Deficits Noted Safety Awareness Decreased Safety Awareness Memory Description No Deficits Noted Strength Lower Extremity Strength Assessment Right Impaired Hip 4/5 Knee 4-/5 Coordination Assessment Gross Coordination Gross Coordination WNL Sensation Assessment Sensation Gross Sensation WNL Muscle Tone Muscle Tone WNL Yes M6 PT-IP Treatment Start: 08/22/22 13:07 Freq: NEEDED Status: Active Protocol: Document 08/22/22 10:30 AB (Rec: 08/22/22 13:18 AB [email or web address]) Physical Therapy Treatment Education Education Provided Precautions,Weight Bearing Status,Post-Op Packet,Safety M7 PT-IP Assessment and Plan Start: 08/22/22 13:07 Freq: NEEDED Status: Active Protocol: Document 08/22/22 10:30 AB (Rec: 08/22/22 13:18 AB [email or web address]) PT Summary Assessment and Plan Potential Rehabilitation Potential Good Status of Condition at Evaluation Stable Summary Impairments Pain,ROM,Strength,Balance,Bed Mobility,Transfers,Gait, Activity Tolerance Assessment Summary pt requiring SBA to CGA with mobility using FWW. pt plans to go home and spouse to assist. pt stated that he has outpt PT set up. pt may go home when medically stable. Goals Bed Mobility Goal Independent Transfer Goal Independent,Front Wheeled Walker Gait Goal Independent,Front Wheel Walker Gait Distance 200 Other Goals up/down 1 step using FWW mod I Days to Meet Goals 3 Frequency of Treatment Frequency Of Treatment Twice a Day Treatment Plan Physical Therapy Treatment Plan Bed Mobility Training,Transfer Training,Gait Training, Therapeutic Exercise,Balance Retraining,Post Op Education, Discharge Planning,Hot or Cold Pack,Neuromuscular Re-ed, Coordination Retraining,Manual Therapy Weight Bearing Status Weight Bearing Status Weight Bear as Tolerated Allowed Weight Bearing Amount (enter % RLE WBAT or #) (%) Recommendations To Nursing Amount of Assist Needed 1 Person Assist Discharge Recommendations PT Discharge Recommendations Home with Assistance, Outpatient PT Transportation Needs at Discharge Private Vehicle
[2022-08-22 11:15] VITALS: BP 135/59; PULSE 50; RESP 21; TEMP 37; O2SAT 96
--- NOTE | 2022-08-22 12:57 | PC.NURSE ---
Discharge Note Patient A&O, VSS, RA, no complaints of pain/discomfort. Discharge packet reviewed with patient, all questions/concerns addressed. PIV/HV drain discontinued without incident. Patient able to dress self and pack all belongings. Patient taken down via wheelchair to POV.
--- NOTE | 2022-08-22 12:59 | CM.DANOTE ---
DCP: Assessment: Patient is a 62 yo male who admitted with his via pov to care of the orthopedic surgeon team on 08/21/2022. He underwent a planned Revision of Right Knee Arthroplasty due to recurrent effusions with a hx of right TKA approximately 20 years ago. Hx of bilateral total knee arthroplasty. DM, Polymayalgia rheumatica, Depression, Sleep apnea. PCP: Quinn Campbell Payor Gracie CASTANON This CM met with pt with his present in the room. Pt A+Ox4 and sitting up in bed. He confirms that he lives on [facility] with his , drives and he reports that he does not use DME at home. Pt has out patient therapy set us at [facility] to attend when he is discharged home. Plan: Home with today and will attend outpatient physical therapy at [facility] per his appt schedule. Shirin Knox RN Case Manager Discharge Planning/Care Management CM Discharge Assessment Start: 08/22/22 12:57 Freq: Status: Active Protocol: Document 08/22/22 12:57 SPEEDY (Rec: 08/22/22 12:59 [id number]) Discharge Planning Assessment Assigned Supervisor Partial Denture Department Shirin Knox RN Case Manager Advance Directives? No Advance Directives on File No History Provided By Patient Has Patient been admitted in last 30 No days? Prior Living Arrangements House Household Members spouse Type of transporation used prior to Drives own vehicle admit Independent with ADL's Yes Is patient alert and oriented? Yes Caregiver for Another No Barriers to Discharge No Discharge Plan Home Community Services Physical Therapy Transportation Arrangement to transport Referrals Initiated None needed Whiteboard Updated in Patient Room with Yes name and ext. # of Supervisor Partial Denture Department Review Status In Process Next Review Type Continued Stay Review Pre-Anesthesia Assessment Start: 08/18/22 08:42 Freq: Status: Active Protocol: Document 08/18/22 08:42 CAB (Rec: 08/18/22 09:28 CAB [id number]) Pre-Anesthesia Assessment Patient Information Reviewed Via Phone Assessment Assessment Completed With Patient Diagnostic Results BMP/CMP,CBC,EKG,Urinalysis Comment Outside labs/EKG scanned, COVID screen @ 08/19/22 Primary Care Provider Quinn Campbell Seen Specialist in Last 12 Months Yes Specialist Seen Orthopedist Primary Language Libyan [employer] 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 No Height 203.2 cm Weight 138.346 kg Body Mass Index (BMI) 33.5 Hearing Ability Hearing Impaired Visual Assist Glasses Dentition Type Teeth, Natural Present,Teeth, Missing Barriers to Learning None Hx Anesthesia Reactions No: I always wake up freezing Hx Family Anesthesia Reaction No Hx Malignant Hyperthermia No Hx Blood Transfusions Yes Hx Blood Transfusion Reaction No Anesthesia Review Requested No alcohol intake current alcohol intake frequency 0-2 drinks per day Smoking Status Former smoker how long ago did patient quit smoking Quit approx 10 years ago Substance Use Type marijuana Comment Pt advised not to smoke marijuana 24 hours prior Pain Present Pain Reported Musculoskeletal Symptoms Abnormal Gait,Difficulty Walking,Joint Pain History of Falling (Recent or History of Yes ) Comment Recent falls r/t knee Patient is completely paralyzed or No completely immobile Mental Status Oriented to own ability Is patient on oxygen? No Does patient have CHILD/SOB No Hx Sleep Apnea Yes CPAP/BIPAP use prescribed and used routinely Will Bring CPAP/BIPAP DOS Yes Currently Taking a Beta Lilian No Can You Climb a Flight of Stairs Without Yes SOB Hx Chest Pain No Hx SOB No Hx Syncope or Dizziness No Anti-Coagulant Therapy No Has a Glaze Mixer No Cardiac Testing No Hx Pacemaker/ICD No Pacemaker Rep Required? No Diet Type At Home Regular Dysphagia No Gastrointestinal Symptoms None Urinary Catheter Present No Hx Urinary Self Catheterization No Diabetes Yes HgbA1C 5.6 Date 08/06/22 Hx Drug Resistant Organism No Presence of External or Internal Medical Yes: Evelio knee prosthesis, CPAP Devices , cervical hardware Have you had any close contact with No someone diagnosed with COVID-19? Received a COVID vaccine? Yes Received all doses? No Marital Status Lives With spouse Current Living Arrangements House Number of Floors (Floors) One Floor Support System Spouse Does the Patient Have Assistance After Yes Surgery Patient Discharge Plan Description Return Home Comment Pt advised overnight length of stay per surgeon. Lives on [facility] Feels Safe in Current Environment Yes Been Physically Hurt or Threatened By a No Person in Current Environment Do you have thoughts of harming yourself None or others? Are you currently considering suicide? No Do you have a plan to hurt yourself or No Plan others? Do You Have Any Spiritual Beliefs That No May Affect Your HC Choices? Do You Have Any Cultural Practices That No May Affect Your HC Choices? Who Can We Speak to About Patient's Care Family, friends Identifying Code for Release of Patient Declines to issue Information Health Care Proxy/Next of Kin Radha () Health Care Proxy Emergency Contact Name Radha () Emergency Contact Advance Directives? No Power of Yarn Weight And Strength Tester No PAC Instructions Bring CPAP/BIPAP,Diabetes instructions,Durable medical equipment,Medications to take/ avoid,Nasal antibiotic,No ETOH /petroleum product on skin DOS ,NPO,Post-op transportation, Pre-surgical wash,Sensory aids ,Sturdy shoes/comfortable clothes,Do not bring valuables and remove jewelry
== END 2022-08-22 12:45 | disposition home or self-care (01) | DRG 489 ==
PROVIDERS: Admitting Provider Orthopaedic Surgery; Family Provider Family Medicine; PCP Family Medicine; Referring Provider Orthopaedic Surgery; Visit Provider Orthopaedic Surgery
PROC: 0SBC0ZZ Excision of Right Knee Joint, Open Approach (ICD-10-PCS; principal; 2022-08-21 13:45)
DX: T84.062A Wear of articular bearing surface of internal prosthetic right knee joint, initial encounter (principal); M25.461 Effusion, right knee; M65.9 Synovitis and tenosynovitis, unspecified; F32.A Depression, unspecified; E11.9 Type 2 diabetes mellitus without complications; Z79.84 Long term (current) use of oral hypoglycemic drugs; Z20.822 Contact with and (suspected) exposure to COVID-19; Z87.891 Personal history of nicotine dependence
CPT/HCPCS: 36415; 73560; 82962; 85014; 85018; 87070; 87075; 87205; 97161; C1776; C9290; J0690; J1100; J2250; J2405; J2704; J3010

== ENCOUNTER → 2023-04-06 12:58 | Outpatient (CLI) | payer OTHER, SELFPAY ==
[2023-03-18 14:19] VITALS: BMI 33.5
[2023-04-06 20:53] LABS: Add Manual Diff / Slide Review NO; Basophils Absolute Auto 100 /uL (0-100); Basophils Percent Auto 1.2 % (0-2); Eosinophils Absolute Auto 400 /uL (0-450); Eosinophils Percent Auto 3.4 % (2-4); Hematocrit 37.8 % (41-53); Hemoglobin 12.8 g/dL (13.5-17.5); Lymphocytes Absolute Auto 1300 /uL (1100-4500); Lymphocytes Percent Auto 10.3 % (25-40); Mean Corpuscular HGB Conc 33.7 % (30-36); Mean Corpuscular Volume 88.9 fL (80-100); Monocytes Absolute Auto 900 /uL (0-900); Monocytes Percent Auto 7.6 % (3-14); Neutrophils Absolute Auto 9400 /uL (1500-7000); Neutrophils Percent Auto 77.5 % (50-75); Platelet Count 333 X10^3/uL (150-400); Red Blood Cell Count 4.26 X10^6/uL (4.5-5.9); Red Cell Distribution Width 14.2 % (11.6-14.8); White Blood Cell Count 12.2 X10^3/uL (4.5-11.0)
[2023-04-06 20:58] LABS: Hemoglobin A1C% w Est Avg Glu 5.1 % (4.0-6.0)
[2023-04-06 22:19] LABS: HEMOLYSIS < 15 (0-50); Iron 66 ug/dL (49-181)
[2023-04-06 22:21] LABS: Cholesterol 167 mg/dL (140-199); HDL Cholesterol 56 mg/dL (40-60); LDL Cholesterol Calculated 96 mg/dL (<100); Triglycerides 73 mg/dL (35-150)
[2023-04-06 22:31] LABS: Percent Iron Saturation 21 % (20-50); Total Iron Binding Capacity 310 ug/dL (261-462); Transferrin 217 mg/dL (206-381)
[2023-04-06 22:35] LABS: Creatinine Urine Random 64.1 mg/dL
[2023-04-06 22:48] LABS: Microalbumin Urine Random < 0.6 mg/dL (0-1.6)
[2023-04-06 22:56] LABS: TSH w/ Reflex to FT4 3.84 uIU/mL (0.47-4.68)
[2023-04-06 23:29] LABS: Folate 5.6 ng/mL (2.76-20.0); Vitamin B12 228 pg/mL (239-931)
== END ==
PROVIDERS: Family Provider Family Medicine; PCP Family Medicine; Visit Provider Family Medicine
DX: E11.42 Type 2 diabetes mellitus with diabetic polyneuropathy (principal); I10 Essential (primary) hypertension; D64.9 Anemia, unspecified; E11.9 Type 2 diabetes mellitus without complications; E78.5 Hyperlipidemia, unspecified; G62.9 Polyneuropathy, unspecified; Z79.52 Long term (current) use of systemic steroids
CPT/HCPCS: 80061; 82043; 82570; 82607; 82746; 83036; 83540; 83550; 84443; 85025

== ENCOUNTER → 2023-11-23 09:02 | Outpatient (CLI) | payer OTHER, SELFPAY ==
[2023-03-18 14:19] VITALS: BMI 33.5
[2023-11-23 20:06] LABS: Add Manual Diff / Slide Review NO; Basophils Absolute Auto 100 /uL (0-100); Basophils Percent Auto 1.3 % (0-2); Eosinophils Absolute Auto 600 /uL (0-450); Hematocrit 37.2 % (41-53); Hemoglobin 12.6 g/dL (13.5-17.5); Lymphocytes Absolute Auto 2300 /uL (1100-4500); Mean Corpuscular HGB Conc 33.8 % (30-36); Mean Corpuscular Hemoglobin 29.6 PG (26-34); Mean Corpuscular Volume 87.7 fL (80-100); Monocytes Absolute Auto 800 /uL (0-900); Monocytes Percent Auto 9.5 % (3-14); Neutrophils Absolute Auto 4700 /uL (1500-7000); Neutrophils Percent Auto 55.2 % (50-75); Platelet Count 278 X10^3/uL (150-400); Red Blood Cell Count 4.24 X10^6/uL (4.5-5.9); Red Cell Distribution Width 15.4 % (11.6-14.8); White Blood Cell Count 8.6 X10^3/uL (4.5-11.0)
[2023-11-23 20:14] LABS: Alanine Aminotransferase 13 IU/L (<50); Albumin 3.8 g/dL (3.5-5.0); Albumin Globulin Ratio 1.6 (1.0-2.8); Alkaline Phosphatase 59 U/L (38-126); Aspartate Aminotransferase 16 IU/L (17-59); BUN Creatinine Ratio 22.7 (6-22); Bilirubin Total 0.5 mg/dL (0.2-1.3); Blood Urea Nitrogen 17 mg/dL (9-20); Carbon Dioxide 28 mmol/L (22-32); Chloride 109 mmol/L (98-107); Cholesterol 137 mg/dL (140-199); Estimated Glomerular Filt Rate > 60 mL/min (>60); Globulin 2.4 g/dL (1.7-4.1); Glucose 98 mg/dL (80-110); HDL Cholesterol 48 mg/dL (40-60); HEMOLYSIS < 15 (0-50); LDL Cholesterol Calculated 69 mg/dL (<100); Potassium 3.6 mmol/L (3.4-5.1); Sodium 142 mmol/L (137-145); Total Protein 6.2 g/dL (6.3-8.2); Triglycerides 101 mg/dL (35-150)
[2023-11-23 20:17] LABS: Hemoglobin A1C% w Est Avg Glu 5.9 % (4.0-6.0)
[2023-11-23 20:26] LABS: Erythrocyte Sedimentation Rate 13 MM/HR (0-15)
[2023-11-23 20:55] LABS: Creatinine Urine Random 193.1 mg/dL
[2023-11-23 21:00] LABS: Microalbumi Creatinin Ratio Ur 3.6 ug/mg CR (<30); Microalbumin Urine Random 0.7 mg/dL (0-1.6)
== END ==
PROVIDERS: PCP Family Medicine; Visit Provider Family Medicine
DX: D64.9 Anemia, unspecified (principal); I10 Essential (primary) hypertension; E78.5 Hyperlipidemia, unspecified; M35.3 Polymyalgia rheumatica; E11.42 Type 2 diabetes mellitus with diabetic polyneuropathy; Z79.52 Long term (current) use of systemic steroids
CPT/HCPCS: 80053; 80061; 82043; 82570; 83036; 85025; 85651

== ENCOUNTER → 2023-12-23 11:05 | Outpatient (CLI) | payer MEDICARE, OTHER, SELFPAY ==
[2023-03-18 14:19] VITALS: BMI 33.5
[2023-12-23 22:04] LABS: Reticulocyte Count, Percent 0.7 % (0.9-2.6)
[2023-12-23 23:21] LABS: Vitamin B12 873 pg/mL (239-931)
== END ==
PROVIDERS: PCP Family Medicine; Visit Provider Family Medicine
DX: D64.9 Anemia, unspecified (principal); E53.8 Deficiency of other specified B group vitamins
CPT/HCPCS: 82607; 82668; 85045

== ENCOUNTER → 2024-03-27 09:07 | Outpatient (CLI) | payer MEDICARE, OTHER, SELFPAY ==
[2023-03-18 14:19] VITALS: BMI 33.5
[2024-03-27 18:58] LABS: Add Manual Diff / Slide Review NO; Basophils Absolute Auto 100 /uL (0-100); Basophils Percent Auto 1.1 % (0-2); Eosinophils Absolute Auto 500 /uL (0-450); Eosinophils Percent Auto 4.5 % (2-4); Hematocrit 38.7 % (41-53); Hemoglobin 13.1 g/dL (13.5-17.5); Lymphocytes Absolute Auto 2500 /uL (1100-4500); Mean Corpuscular HGB Conc 33.9 % (30-36); Mean Corpuscular Volume 88.4 fL (80-100); Monocytes Absolute Auto 900 /uL (0-900); Monocytes Percent Auto 9.2 % (3-14); Neutrophils Absolute Auto 6300 /uL (1500-7000); Neutrophils Percent Auto 61.2 % (50-75); Platelet Count 307 X10^3/uL (150-400); Red Blood Cell Count 4.38 X10^6/uL (4.5-5.9); Red Cell Distribution Width 15.1 % (11.6-14.8); White Blood Cell Count 10.3 X10^3/uL (4.5-11.0)
[2024-03-27 19:26] LABS: Prothrombin Time 11.9 SECONDS (9.4-12.5)
[2024-03-27 19:29] LABS: PTT Partial Thromboplastin Tim 33 SECONDS (25.1-36.5)
== END ==
PROVIDERS: PCP Family Medicine; Visit Provider Radiology Diagnostic Radiology
DX: M54.2 Cervicalgia (principal)
CPT/HCPCS: 85025; 85610; 85730

== ENCOUNTER 2024-03-31 11:22 | Day surgery (SDC) | payer MEDICARE, OTHER, SELFPAY ==
[2023-03-18 14:19] VITALS: BMI 33.5
--- NOTE | 2024-03-31 | DI.RAD.S_ITS ---
PROCEDURE: FL INJECT SPINE FOR CT MYELO INDICATIONS: hand pain/fluoro guided myelogram COMPARISON: None. TECHNIQUE: The indications, alternatives, benefits, risks, and complications of the procedure were explained to the patient. Written informed consent was obtained and placed in the chart. The patient was placed in a prone position on the fluoroscopy table, and a site was chosen for percutaneous access under fluoroscopic guidance. The skin was prepped and draped in a sterile fashion. A spinal needle was then used to enter the intrathecal space, with return of clear cerebrospinal fluid. Ten mL of Isovue M-300 were administered intrathecally under fluoroscopic visualization. The needle was then withdrawn, and a bandage applied to the puncture site. The patient was then placed in a Trendelenburg position to allow contrast migration up to the cervical spine. Fluoroscopic spot films were then acquired in various positions. FINDINGS: Postinjection films demonstrate normal overall caliber to the central spinal canal, without significant canal stenoses. Oblique images demonstrate no foraminal stenoses. Access level: L3-4 Needle: Spinal needle. Medications: 1% lidocaine for local anaesthesia. Complications: None. Patient transferred to CT for subsequent CT myelogram. IMPRESSION: Successful fluoroscopically guided administration of iodinated contrast into the cervical spinal canal for CT myelogram. Dictated by: Arvind Fournier M.D. on 03/31/2024 at 15:58 Approved by: Arvind Fournier M.D. on 03/31/2024 at 15:59
--- NOTE | 2024-03-31 11:23 | DI.CT.S_ITS ---
PROCEDURE: CT CERVICAL MYELOGRAM INDICATIONS: Right hand weakness and numbness. Has metal plate in neck TECHNIQUE: After the administration of 10mL intrathecal contrast, 3 mm thick sections acquired from the skull base to the T1 level. Sagittal and coronal reformats were then constructed. For radiation dose reduction, the following was used: automated exposure control, adjustment of mA and/or kV according to patient size. COMPARISON: None. FINDINGS: Image quality: Excellent. Bones and alignment: Straightening of the normal cervical lordosis. Status post C3 through C6 ACDF. No findings concerning for hardware complication. Degenerative changes, most pronounced at C6-C7.. No acute fractures. No suspicious bony lesions. Soft tissues: No paraspinal masses. Prevertebral soft tissues are normal in thickness. Visualized neck vasculature appears normal in size. Multinodular goiter. C2-C3: Posterior disc osteophyte complex. Mild central canal stenosis. Moderate left and mild right neural foraminal stenosis. C3-C4: No central canal stenosis. Facet and uncovertebral arthropathy. Mild bilateral neural foraminal stenosis. C4-C5: Postoperative changes. No central canal stenosis. Facet uncovertebral arthropathy. No significant neural foraminal stenosis. C5-C6: Postoperative changes. No significant central canal stenosis. Facet and uncovertebral arthropathy. Severe right and no left neural foraminal stenosis. C6-C7: Posterior disc osteophyte complex. Mild central canal stenosis. Facet uncovertebral arthropathy. Mild right and no left neural foraminal stenosis. C7-T1: Posterior disc osteophyte complex. Mild central canal stenosis. No significant neural foraminal stenosis. Miscellaneous: Visualized intracranial structures appear unremarkable. Intracranial gas is noted, likely injection related. IMPRESSION: 1. Multilevel degenerative changes of the cervical spine status post C3 through C6 ACDF. 2. Mild central canal stenosis at C2-C3, C6-C7 and C7-T1. 3. Severe right neural foraminal stenosis at C5-C6. Moderate left neural foraminal stenosis at C2-C3. 4. Multinodular goiter. Recommend dedicated thyroid ultrasound for further evaluation if not previously obtained. Dictated by: Brendon Black M.D. on 03/31/2024 at 17:02 Approved by: Brendon Black M.D. on 03/31/2024 at 17:07
[2024-03-31] MEDS: LIDOCAINE 1% 20 ML INJ (13:36)
== END 2024-03-31 11:30 | disposition home or self-care (01) ==
LOC: CT 11:26 → OR 12:39
PROVIDERS: PCP Family Medicine; Referring Provider Family Medicine; Visit Provider Family Medicine
DX: R29.898 Other symptoms and signs involving the musculoskeletal system (principal)
CPT/HCPCS: 62284; 72126; 77003

== ENCOUNTER 2024-03-31 14:44 | Day surgery (SDC) | payer MEDICARE, OTHER, SELFPAY ==
[2023-03-18 14:19] VITALS: BMI 33.5
[2024-03-31 12:20] VITALS: BP 137/80; PULSE 60; RESP 18; TEMP 36.5; O2SAT 98; BMI 35.2
[2024-03-31 14:00] VITALS: BP 133/75; PULSE 48; RESP 16; O2SAT 98
[2024-03-31 14:55] VITALS: BP 147/86; PULSE 50; RESP 16; O2SAT 97
[2024-03-31 15:02] VITALS: BP 140/80; PULSE 50; RESP 16; TEMP 36.2; O2SAT 96
[2024-03-31 15:32] VITALS: BP 141/76; PULSE 59; RESP 18; O2SAT 99
== END 2024-03-31 15:36 | disposition home or self-care (01) ==
PROVIDERS: PCP Family Medicine; Referring Provider Family Medicine; Visit Provider Family Medicine
DX: Z53.9 Procedure and treatment not carried out, unspecified reason (principal)

== ENCOUNTER → 2024-05-25 10:49 | Outpatient (CLI) | payer MEDICARE, OTHER, SELFPAY ==
[2023-03-18 14:19] VITALS: BMI 33.5
== END ==
PROVIDERS: Family Provider Family Medicine; PCP Family Medicine; Referring Provider Family Medicine; Visit Provider Family Medicine
DX: R29.898 Other symptoms and signs involving the musculoskeletal system (principal)
CPT/HCPCS: 95886; 95910

== ENCOUNTER → 2024-12-06 10:26 | Outpatient (CLI) | payer MEDICARE, OTHER, SELFPAY ==
[2023-03-18 14:19] VITALS: BMI 33.5
[2024-12-06 19:28] LABS: Add Manual Diff / Slide Review NO; Basophils Absolute Auto 100 /uL (0-100); Basophils Percent Auto 1.1 % (0-2); Eosinophils Absolute Auto 600 /uL (0-450); Eosinophils Percent Auto 6.9 % (2-4); Hematocrit 38.4 % (41-53); Lymphocytes Absolute Auto 2100 /uL (1100-4500); Lymphocytes Percent Auto 22.8 % (25-40); Mean Corpuscular HGB Conc 33.9 % (30-36); Mean Corpuscular Hemoglobin 29.4 PG (26-34); Mean Corpuscular Volume 86.6 fL (80-100); Monocytes Absolute Auto 800 /uL (0-900); Monocytes Percent Auto 8.4 % (3-14); Neutrophils Absolute Auto 5700 /uL (1500-7000); Neutrophils Percent Auto 60.8 % (50-75); Platelet Count 337 X10^3/uL (150-400); Red Blood Cell Count 4.43 X10^6/uL (4.5-5.9); Red Cell Distribution Width 14.4 % (11.6-14.8); White Blood Cell Count 9.4 X10^3/uL (4.5-11.0)
[2024-12-06 19:38] LABS: Alanine Aminotransferase 28 IU/L (<50); Albumin Globulin Ratio 1.6 (1.0-2.8); Alkaline Phosphatase 78 U/L (38-126); Aspartate Aminotransferase 24 IU/L (17-59); Bilirubin Total 0.7 mg/dL (0.2-1.3); Blood Urea Nitrogen 20 mg/dL (9-20); Calcium 9.1 mg/dL (8.4-10.2); Carbon Dioxide 26 mmol/L (22-32); Chloride 107 mmol/L (98-107); Cholesterol 142 mg/dL (140-199); Estimated Glomerular Filt Rate > 60 mL/min (>60); Globulin 2.5 g/dL (1.7-4.1); Glucose 113 mg/dL (70-99); HDL Cholesterol 45 mg/dL (40-60); HEMOLYSIS < 15 (0-50); LDL Cholesterol Calculated 79 mg/dL (<100); Potassium 3.8 mmol/L (3.4-5.1); Sodium 140 mmol/L (137-145); Total Protein 6.5 g/dL (6.3-8.2); Triglycerides 88 mg/dL (35-150)
[2024-12-06 19:50] LABS: Erythrocyte Sedimentation Rate 23 MM/HR (0-15)
[2024-12-06 20:43] LABS: Creatinine Urine Random 272.38 mg/dL
[2024-12-06 20:49] LABS: Microalbumin Urine Random 3.2 mg/dL (0-1.6)
== END ==
PROVIDERS: Family Provider Family Medicine; PCP Family Medicine; Visit Provider Family Medicine
DX: D64.9 Anemia, unspecified (principal); E78.5 Hyperlipidemia, unspecified; E11.42 Type 2 diabetes mellitus with diabetic polyneuropathy; I10 Essential (primary) hypertension; E04.2 Nontoxic multinodular goiter; M35.3 Polymyalgia rheumatica; Z79.52 Long term (current) use of systemic steroids
CPT/HCPCS: 80053; 80061; 82043; 82570; 83036; 85025; 85651